=== PATIENT | female | born 1985 | race Caucasian/White ===

== ENCOUNTER 2023-12-29 07:44 | Inpatient (IN) | payer BC ==
[2023-12-29 08:53] VITALS: BMI 31.5
[2023-12-29] MEDS ORDERED: Methylergonovine 0.2 MG/ML VIAL IM PRN (09:50)
[2023-12-29] MEDS ORDERED: fentaNYL 50 mcg/mL 1 mL Vial SLOW IVP PRN (09:50)
[2023-12-29] MEDS ORDERED: Carboprost 250 MCG/ML AMP IM PRN (09:50)
[2023-12-29] MEDS ORDERED: Misoprostol 200 MCG TAB PR PRN (09:50)
[2023-12-29] MEDS ORDERED: Ondansetron PF 4 MG/2 ML Vial IVP PRN ×3 (09:50→19:25)
[2023-12-29] MEDS ORDERED: Lidocaine 1% (PF) 30 ML VIAL SC PRN (09:50)
[2023-12-29] MEDS ORDERED: Diphenoxylate HCl/Atropine Tablet PO PRN (09:50)
[2023-12-29] MEDS ORDERED: Promethazine HCl 25 MG/ML VIAL IM PRN ×3 (09:50→19:25)
[2023-12-29] MEDS ORDERED: Acetaminophen 500 MG TAB PO PRN (09:50)
[2023-12-29] MEDS ORDERED: Ibuprofen 800 MG TAB PO PRN (09:50)
[2023-12-29] MEDS ORDERED: hydrALAZINE 20 MG/ML VIAL SLOW IVP PRN ×2 (09:50→19:25)
[2023-12-29] MEDS ORDERED: HYDROcodone/Acetaminophen 5/325 mg Tablet PO PRN ×3 (09:50→19:25)
[2023-12-29] MEDS ORDERED: Oxytocin 30 units/NS 500 ML 500 ML IV SCH (10:00)
[2023-12-29 10:03] LABS: Hematocrit 36.8 % (34.9-44.5); Hemoglobin 12.9 g/dL (12.0-15.5); Mean Corpuscular HGB CONC 35.1 g/dL (32.0-36.0); Mean Corpuscular Hemoglobin 31.2 pg (27.0-33.0); Mean Corpuscular Volume 89.1 fl (81.6-98.3); Mean Platelet Volume 10.1 fl (7.4-10.4); Platelet Count 224 10x3/uL (150-450); Red Blood Cell (RBC) Count 4.13 10x6/uL (3.90-5.03); White Blood Cell (WBC) Count 12.9 10x3/uL (3.5-10.5)
[2023-12-29] MEDS: Lactated Ringer's 1,000 ML IV SCH (10:09)
[2023-12-29] MEDS: CEFAZOLIN 2 GM in Sodium Chloride 0.9% 100 ML IVPB SCH (10:09)
[2023-12-29 10:33] LABS: HBSAg Index 0.21 S/CO (0-0.99); Hep B Surf Ag - L&D Non-Reactive S/CO (NonReactive)
[2023-12-29 10:34] LABS: Syphilis Antibody Nonreactive (Nonreactive); Syphilis Antibody Index 0.05 S/CO (<1.00 Non-Reactive)
[2023-12-29] MEDS: fentaNYL/Ropivacaine Epidural 100 ML ONE (13:10)
[2023-12-29] MEDS: CEFAZOLIN 2 GM VIAL ONE (13:14)
[2023-12-29] MEDS ORDERED: Naloxone HCl 0.4 mg/ml Vial IVP PRN ×2 (13:18)
[2023-12-29] MEDS ORDERED: ePHEDrine Sulfate 50 MG/10 ML VIAL SLOW IVP PRN (13:18)
[2023-12-29] MEDS ORDERED: Lactated Ringer's 500 ML IV PRN (13:18)
[2023-12-29] MEDS ORDERED: Acetaminophen 325 MG TAB PO PRN (13:18)
[2023-12-29] MEDS ORDERED: diphenhydrAMINE 50 MG/ML VIAL IVP PRN (13:18)
[2023-12-29] MEDS ORDERED: Moisturizing Cream (Eucerin) 113 GM JAR TOP PRN (13:18)
[2023-12-29] MEDS ORDERED: fentaNYL 2 mcg/Ropivacaine 0.2% Epidural 100 ML CADD EPIDURAL SCH (13:30)
[2023-12-29] MEDS ORDERED: Communication Order-Pharmacy FS SCH (13:30)
[2023-12-29] MEDS: Oxytocin 30 units/NS 500 ML 500 ML IVPB SCH (16:00)
[2023-12-29] MEDS ORDERED: CEFAZOLIN 2 GM in Sodium Chloride 0.9% 100 ML IVPB SCH (18:00)
[2023-12-29] MEDS ORDERED: Milk Of Magnesia 30 ML UDCUP PO PRN (19:25)
[2023-12-29] MEDS ORDERED: Preparation H Ointment 28 GM TUBE PR PRN (19:25)
[2023-12-29] MEDS ORDERED: Lanolin Ointment 7 GM TUBE TOP PRN (19:25)
[2023-12-29] MEDS ORDERED: Benzocaine-Menthol 82.5 ML CAN TOP PRN (19:25)
[2023-12-29] MEDS ORDERED: diphenhydrAMINE 25 MG CAP PO PRN (19:25)
[2023-12-29] MEDS ORDERED: Bisacodyl 10 MG SUPP PR PRN (19:25)
[2023-12-29] MEDS: Ibuprofen 800 MG TAB PO SCH (21:35)
[2023-12-29] MEDS: Docusate 100 MG CAP PO SCH (21:35)
[2023-12-30] MEDS: Boostrix 0.5 ML (Tdap) VIAL (>/=7 yrs of age) IM ONE (07:29)
[2023-12-30] MEDS: Ferrous Sulfate 325 MG TAB PO SCH (07:30)
[2023-12-30] MEDS: Prenatal Vitamin 1 TAB PO SCH (08:22)
[2023-12-31 19:45] VITALS: BP 128/76; TEMP 98
== END 2023-12-31 21:25 | disposition home or self-care (01) | DRG 807 ==
LOC: CJX 07:44 → CSHLD/OP 07:44 → CSHLD 09:49 → CSHPP 20:28
PROVIDERS: ADMIT Student in an Organized Health Care Education/Training Program; ATTEND Student in an Organized Health Care Education/Training Program
PROC: 10D07Z6 Extraction of Products of Conception, Vacuum, Via Natural or Artificial Opening (ICD-10-PCS; principal; 2023-12-29)
PROC: 0HQ9XZZ Repair Perineum Skin, External Approach (ICD-10-PCS; 2023-12-29)
DX: O40.3XX0 Polyhydramnios, third trimester, not applicable or unspecified (principal); Z37.0 Single live birth; O99.284 Endocrine, nutritional and metabolic diseases complicating childbirth; E03.9 Hypothyroidism, unspecified; O69.81X0 Labor and delivery complicated by cord around neck, without compression, not applicable or unspecified; O70.0 First degree perineal laceration during delivery; O76 Abnormality in fetal heart rate and rhythm complicating labor and delivery; Z79.890 Hormone replacement therapy; Z3A.37 37 weeks gestation of pregnancy; Z79.899 Other long term (current) drug therapy; Z88.0 Allergy status to penicillin; Z88.2 Allergy status to sulfonamides; F32.A Depression, unspecified; O99.344 Other mental disorders complicating childbirth; D64.9 Anemia, unspecified; O99.02 Anemia complicating childbirth; J45.909 Unspecified asthma, uncomplicated; O99.52 Diseases of the respiratory system complicating childbirth
CPT/HCPCS: 51702; 85027; 86780; 86850; 86900; 86901; 87340; 99285; J2590; J3490; J7120